=== PATIENT | female | born 1990 | race Caucasian/White ===

== ENCOUNTER 2018-05-24 08:03 | Inpatient (IN) | payer OTHER ==
[2018-05-24] MEDS ORDERED: METHYLERGONOVINE 0.2 MG INJ IM (09:00)
[2018-05-24] MEDS ORDERED: AMPICILLIN 2 GM/NS (PMX) 100 ML IV (09:00)
[2018-05-24] MEDS ORDERED: CARBOPROST 250 MCG INJ IM (09:00)
[2018-05-24] MEDS ORDERED: LIDOCAINE 1% (MPF) 30 ML INJ INJ (09:00)
[2018-05-24] MEDS ORDERED: MISOPROSTOL 200 MCG TAB PR (09:00)
[2018-05-24] MEDS ORDERED: OXYTOCIN 30 UNITS/LR 500 ML IV ×2 (09:00→09:30)
[2018-05-24 09:11] LABS: ADD MAN DIFF? NO
[2018-05-24] MEDS: LACTATED RINGER'S 1,000 ML IV* ×3 (09:12→16:17)
[2018-05-24 09:24] LABS: BASOPHILS % 0.3 % (0.0-2.0); EOSINOPHILS # 0.1 10^3/ul (0.0-0.5); EOSINOPHILS % 0.9 % (0.0-7.0); HEMATOCRIT 33.1 % (37.0-47.0); HEMOGLOBIN 10.9 g/dl (12.0-16.0); LYMPHOCYTES # 1.7 10^3/ul (0.8-2.9); LYMPHOCYTES % 22.6 % (15.0-51.0); MEAN CORPUSCULAR HEMOGLOBIN 28.7 pg (29.0-33.0); MEAN CORPUSCULAR HGB CONC 32.9 g/dl (32.0-37.0); MEAN CORPUSCULAR VOLUME 87.1 fl (82.0-101.0); MEAN PLATELET VOLUME 11.2 fl (7.4-10.4); MONOCYTE # 0.7 10^3/ul (0.3-0.9); NEUTROPHILS % 66.4 % (39.0-77.0); PLATELET COUNT 234 10^3/UL (140-415); RED CELL DISTRIBUTION WIDTH 13.5 % (11.5-14.5)
[2018-05-24 09:24] LABS: WHITE BLOOD COUNT 7.6 10^3/ul (4.8-10.8)
[2018-05-24 09:40] LABS: INR 0.84; PROTIME 11.6 Sec (11.9-14.9); PT RATIO 0.9
[2018-05-24 09:41] LABS: PARTIAL THROMBOPLASTIN TIME 26.4 Sec (23.0-35.0)
[2018-05-24] MEDS ORDERED: AMPICILLIN 1 GM/NS (PMX) 50 ML IV (12:30)
[2018-05-24] MEDS: OXYTOCIN 30 UNITS/LR 500 ML IV ×3 (13:36→21:03)
[2018-05-24] MEDS: BUTORPHANOL 2 MG INJ IV (15:06)
[2018-05-24] MEDS ORDERED: FENTAnyl 2MCG/ML-ROPIV 0.2% 100 ML (16:29)
[2018-05-24 16:34] LABS: RAPID PLASMA REAGIN NONREACTIVE (NR)
[2018-05-24] MEDS ORDERED: NALOXONE (0.4 MG/ML) INJ IV (17:00)
[2018-05-24] MEDS: FENTAnyl 2MCG/ML-ROPIV 0.2% 100 ML BAG EPI (17:11)
[2018-05-24] MEDS ORDERED: ONDANSETRON 4 MG INJ IV (20:30)
[2018-05-24] MEDS ORDERED: DIBUCAINE 1% 30 GM OINT PR (20:30)
[2018-05-24] MEDS ORDERED: HYDROCODONE/APAP (5/325) TAB PO ×2 (20:30)
[2018-05-24] MEDS ORDERED: ACETAMINOPHEN 325 MG TAB PO (20:30)
[2018-05-24] MEDS ORDERED: OXYCODONE/ASPIRIN (4.88/325) TAB PO ×2 (20:30)
[2018-05-24] MEDS: BENZOCAINE 20% 56 ML SPRAY TOP (21:03)
[2018-05-24] MEDS: LANOLIN 7 GM TUBE TOP (21:03)
[2018-05-24] MEDS: SENNA/DOCUSATE NA (8.6MG/50MG) TAB PO (21:03)
[2018-05-24] MEDS: WITCH HAZEL/GLYCERIN PAD PR (21:03)
[2018-05-24] MEDS: IBUPROFEN 600 MG TAB PO (23:33)
[2018-05-25] MEDS: IBUPROFEN 600 MG TAB PO ×4 (05:39→23:37)
[2018-05-25 07:18] LABS: ADD MAN DIFF? NO
[2018-05-25 07:22] LABS: BASOPHILS % 0.2 % (0.0-2.0); EOSINOPHILS # 0.1 10^3/ul (0.0-0.5); EOSINOPHILS % 0.6 % (0.0-7.0); HEMATOCRIT 34.2 % (37.0-47.0); HEMOGLOBIN 11.4 g/dl (12.0-16.0); LYMPHOCYTES % 18.9 % (15.0-51.0); MEAN CORPUSCULAR HEMOGLOBIN 28.6 pg (29.0-33.0); MEAN CORPUSCULAR HGB CONC 33.3 g/dl (32.0-37.0); MEAN CORPUSCULAR VOLUME 85.7 fl (82.0-101.0); MEAN PLATELET VOLUME 11.3 fl (7.4-10.4); MONOCYTE # 0.7 10^3/ul (0.3-0.9); MONOCYTES % 6.9 % (0.0-11.0); NEUTROPHIL # 7.8 10^3/ul (1.6-7.5); NEUTROPHILS % 72.8 % (39.0-77.0); PLATELET COUNT 220 10^3/UL (140-415); RED BLOOD COUNT 3.99 10^6/ul (4.20-5.40); RED CELL DISTRIBUTION WIDTH 13.5 % (11.5-14.5)
[2018-05-25 07:22] LABS: WHITE BLOOD COUNT 10.7 10^3/ul (4.8-10.8)
[2018-05-25] MEDS: SENNA/DOCUSATE NA (8.6MG/50MG) TAB PO ×2 (09:22→20:46)
[2018-05-26] MEDS: IBUPROFEN 600 MG TAB PO ×3 (06:02→17:38)
[2018-05-26] MEDS: SENNA/DOCUSATE NA (8.6MG/50MG) TAB PO (09:00)
[2018-05-26] MEDS: MEASLES,MUMPS,RUBELLA VACCINE INJ SC* (09:24)
== END 2018-05-26 18:30 | disposition home or self-care (01) | DRG 807 ==
LOC: OBT 08:03 → L-D 08:03 → OBT 08:08 → L-D 08:08 → PP1 20:09
PROVIDERS: Obstetrics & Gynecology
PROC: 10E0XZZ Delivery of Products of Conception, External Approach (ICD-10-PCS; principal; 2018-05-24)
PROC: 0HQ9XZZ Repair Perineum Skin, External Approach (ICD-10-PCS; 2018-05-24)
DX: O69.81X0 Labor and delivery complicated by cord around neck, without compression, not applicable or unspecified (principal); O70.0 First degree perineal laceration during delivery; Z37.0 Single live birth; Z3A.38 38 weeks gestation of pregnancy
CPT/HCPCS: 62319; 85025; 85610; 85730; 86592; 86850; 86900; 86901